=== PATIENT | female | born 1960 | race American Indian/Alaskan Native ===

== ENCOUNTER 2017-07-14 09:26 | Emergency (ER) | payer OTHER ==
--- NOTE | 2017-07-14 10:59 | Emergency Department Report ---
Blank Doc - Documentation Documentation: [id number] pt not in room nurses notified they will look for and call the patient
[2017-07-14] MEDS ORDERED: TRIPLE ANTIBIOTIC TP ONE ×2 (11:48→11:55)
[2017-07-14] MEDS ORDERED: KEFLEX PO ONE (11:55)
--- NOTE | 2017-07-14 11:55 | Emergency Department Report ---
Abscess Boil HPI - HPI Chief Complaint: Wound/Laceration Stated Complaint: EAR PAIN Time Seen by Provider: 07/14/17 10:07 Duration: 5 Days Location: Other (L EAR) Severity: Moderate History: Yes Pain, Yes Purulent Drainage, Yes Foreign Body (SENSATION), Yes Previous History, Yes Insect Bite (SHE THINKS BUG IS IN HER EAR- THE SKIN OF THE EAR (PINNA); NOT THE CANAL), No Fever, No Numbness Home Medications: Previous Rx's Medication Instructions Recorded Last Taken Type Ciprofloxacin HCl [Cipro] 500 mg PO BID #20 tablet 07/14/17 Unknown Rx Allergies/Adverse Reactions: Allergies Allergy/AdvReac Type Severity Reaction Status Date / Time No Known Allergies Allergy Unverified 07/14/17 09:36 ED Review of Systems ROS: Stated complaint: EAR PAIN Other details as noted in HPI Comment: All other systems reviewed and negative ENT: ear pain ED Past Medical Hx - Past Medical History Previous Medical History?: Yes Hx Hypertension: Yes - Surgical History Past Surgical History?: No - Social History Smoking Status: Never Smoker - Medications Home Medications: Home Medications Medication Instructions Recorded Confirmed Last Taken Type Ciprofloxacin HCl [Cipro] 500 mg PO BID #20 tablet 07/14/17 Unknown Rx ED Abscess Boil Physical Exam - Exam General: Vital signs noted. No distress. Alert and acting appropriately. Front/Back of Body, Lg (Color): 1 - PINNA OF EAR W SMALL ABSCESS WHERE THE PT HAS BEEN PICKING AT SCAB. SHE INSISTS BUG IS IN THERE. WHAT SHE IS FEELING IS SCAB AND DIRT IN THE PINNA. WOUND CLEANED AND PT REASSURED. EDUCATED TO KEEP HANDS OFF WOUND. HOME ON CLINDA FOR PSEUDO. COVERAGE IN EAR. Size: 1 cm Exam: Yes Tenderness, Yes Fluctuance, Yes Surrounding Cellulites/Erythema, Yes Normal Neurologic Exam, Yes Normal Circulation, No Lymphangitis, No Crepitation , No Heart Murmur I & D Note - I & D Note I & D Note: NO I/D. WOUND CLEANED. DRAINING ON ITS OWN. NO FB. PT REASSURED. TENDER TO TOUCH ED Course Vital Signs 07/14/17 09:34 Temperature 98.3 F Pulse Rate 77 Respiratory 18 Rate Blood Pressure 145/60 O2 Sat by Pulse 99 Oximetry - Reevaluation(s) Reevaluation #1: 07/14/17 13:15 WOUND CARE PT EDUCATED MEDICATED DC HOME W DC POC NAD NON TOXIC NON ILL POS WHISPER TEST AT 6 FEET BILATERAL Critical care attestation.: If time is entered above; I have spent that time in minutes in the direct care of this critically ill patient, excluding procedure time. ED Medical Decision Making - Medical Decision Making SEE NOTE - Differential Diagnosis RO FB TO EAR ED Disposition Clinical Impression: Cellulitis Disposition: DC-01 TO HOME OR SELFCARE Is pt being admited?: No Does the pt Need Aspirin: No Condition: Stable Instructions: Wound Infection (ED), Acute Wound Care (ED) Additional Instructions: NO PEROXIDE NOTHING IN EAR DO NOT PICK AT EAR NO QTIPS TAKE MEDS INSTRUCTED FOLLOW UP AT THE MD BELOW FOR RECHECK MOTRIN OR TYLENOL FOR PAIN Referrals: PRIMARY CARE, [Primary Care Provider] - 3-5 Days DEMETRIS MURRIETA MD [Staff Physician] - 3-5 Days ANABEL WARNER MD [Referring] - 3-5 Days Time of Disposition: 13:11
[2017-07-14 13:11] VITALS: BP 149/67
[2017-07-14] MEDS ORDERED: NORCO 5/325 PO ONE (13:11)
== END 2017-07-14 13:41 | disposition home or self-care (01) ==
LOC: ED 09:26
DX: H60.12 Cellulitis of left external ear (principal); I10 Essential (primary) hypertension
CPT/HCPCS: 99283; A6250